=== PATIENT | male | born 1970 | race African-American/Black ===

== ENCOUNTER 2022-10-01 13:04 | Emergency (ER) | payer MEDICAID ==
[~2022-10-01] VITALS: Ht 195.6 cm; Wt 146.0 kg
[2022-10-01 13:06] VITALS: BP 159/93
[2022-10-01 16:58] LABS: BASOPHILS % 1.4 % (0.0-2.0); EOSINOPHILS % 3.1 % (0.0-5.0); HEMATOCRIT. 46.2 % (42.0-52.0); HEMOGLOBIN. 14.5 g/dL (14.0-18.0); LYMPHOCYTES % 29.1 % (20.0-50.0); MEAN CORPUSCULAR HEMOGLOBIN 27.1 pg (28.0-32.0); MEAN CORPUSCULAR VOLUME 86.6 fL (80.0-94.0); MONOCYTES % 11.1 % (2.0-8.0); NEUTROPHILS % 55.3 % (40.0-76.0); RED BLOOD CELL COUNT 5.34 mill/uL (4.7-6.1); RED CELL DISTRIBUTION WIDTH 16.1 % (11.6-14.6)
[2022-10-01 17:02] LABS: CHLORIDE 112 mEq/L (98-107)
[2022-10-01] MEDS ORDERED: IBUPROFEN 400MG TABLET PO ONE (17:30)
[2022-10-01] MEDS ORDERED: ACETAMINOPHEN 325MG TABLET PO ONE (17:30)
[2022-10-01 17:50] LABS: MEAN PLATELET VOLUME 10.1 fl (7.4-10.4); PLATELET 137 x1000/uL (130-400)
== END 2022-10-01 18:22 | disposition home or self-care (01) ==
LOC: ER 13:36
DX: M79.89 Other specified soft tissue disorders (principal); M79.605 Pain in left leg; M79.604 Pain in right leg
CPT/HCPCS: 36415; 71045; 80053; 83880; 85025; 93970; 99285